=== PATIENT | female | born 2000 | race Caucasian/White ===

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

== ENCOUNTER 2023-01-15 12:46 | Emergency (ER) | payer BC, SELFPAY ==
[2023-01-15 12:47] VITALS: BP 130/91; PULSE 70; RESP 16; TEMP 36.7; O2SAT 97; BMI 23.1
[2023-01-15 13:17] LABS: Coronavirus 19, PCR Not Detected (NotDetected); Influenza A, PCR Not Detected (NotDetected); Influenza B, PCR Not Detected (NotDetected)
--- NOTE | 2023-01-15 13:19 | [facility].EDGENADL ---
Discharge Plan Disposition Patient Disposition: Home, Self-Care Prescriptions Prescriptions: New cefdinir 300 mg capsule 300 mg PO BID 10 Days Qty: 20 0RF No Action ranitidine HCl 150 MG tablet 150 mg PO DAILY montelukast 10 MG tablet 10 mg PO HS fluticasone propionate 16 GM spray,suspension 16 g intranasal DAILY norethindrone-e.estradiol-iron [Blisovi 24 Fe] 1 EACH tablet 1 ea PO DAILY levocetirizine 5 MG tablet 5 mg PO DAILY ondansetron 8 MG tablet,disintegrating 8 mg PO Q8H PRN (Reason: nausea/vomiting) 10 Days Qty: 30 0RF Referrals Follow up/Referrals: Provider,Referral, MD [Primary Care Provider] - See instructions Activity Restrictions/Add. Instructions Additional Instructions/Restrictions: You were evaluated in the emergency department today. At this time, we feel you likely have a viral upper respiratory infection. Given that you have a history of bacterial sinusitis that has been severe in the past, we are providing you with a prescription for cefdinir for you to take should your symptoms persist beyond 7 to 10 days. If you start this medication, please complete the full course as prescribed. Take Tylenol, ibuprofen, and use [id number] medications such as Flonase and Claritin to help reduce the nasal congestion and drainage. Return to the emergency department for new or worsening symptoms. Clinical Impressions Clinical Impression: Upper respiratory infection, viral, Sinusitis Instructions Patient Instructions: DI for Sinusitis, DI for Viral Upper Respiratory Infection -- Adult Discharge ED Provider: Marcia Oquendo General Adult HPI General Chief complaint: Upper Respiratory Infection Stated complaint: congestion, runny nose Time Seen by Provider: 01/15/23 12:55 Mode of Arrival: Ambulatory Source of Information: Patient Limitations: No Limitations Description of Symptoms (Recalled from ER Triage Doc. by RN): Pt reports cough, nasal congestion, sinus pressure, fever lastnight. Pt reports has taken 2 home covid tests-both negative. History of Present Illness HPI narrative: This patient is a 22-year-old female who denies significant past medical history presenting to the emergency department for evaluation with concern for 2 days of cough, nasal congestion, sinus pressure, and green nasal discharge. She also notes that she has had a fever since last night. She notes that she has a history of getting up bacterial sinus infections anytime she gets sick, so she is worried that she may need an antibiotic at this time. She denies any other concerns or complaints and has otherwise been well. She notes 2 negative COVID tests at home. Related Data Home Medications Medication Instructions Recorded Confirmed fluticasone propionate 50 16 g intranasal DAILY ALLERGIES 07/19/17 07/19/17 mcg/actuation nasal spray,suspension levocetirizine 5 mg tablet 5 mg PO DAILY ALLERGIES 07/19/17 07/19/17 montelukast 10 mg tablet 10 mg PO HS ALLERGIES 07/19/17 07/19/17 norethindrone 1 mg-ethinyl 1 ea PO DAILY control 07/19/17 07/19/17 estradiol 20 mcg (24)-iron 75 mg (4) tablet (Blisovi 24 Fe) ranitidine HCl 150 mg tablet 150 mg PO DAILY GERD 07/19/17 07/19/17 Previous Rx's Medication Instructions Recorded ondansetron 8 mg disintegrating 8 mg PO Q8H PRN nausea/vomiting 10 07/19/17 tablet days #30 tabs cefdinir 300 mg capsule 300 mg PO BID 10 days #20 caps 01/15/23 Allergies Allergy/AdvReac Type Severity Reaction Status Date / Time Penicillins Allergy Verified 07/27/17 17:27 Sulfa (Sulfonamide Allergy Verified 07/27/17 17:28 Antibiotics) [facility] Disclaimer: The information contained in this section may have been updated after the patient was seen, as this information can be updated by other users. Social History Smoking Status: Never smoker alcohol intake: never current occu
[2023-01-15 13:21] VITALS: BP 0/0; PULSE 140; RESP 36; TEMP 37.2; O2SAT 99
== END 2023-01-15 13:39 | disposition home or self-care (01) ==
PROVIDERS: Emergency Provider Emergency Medicine
DX: J06.9 Acute upper respiratory infection, unspecified (principal); J01.90 Acute sinusitis, unspecified; R50.9 Fever, unspecified; R05.9 Cough, unspecified
CPT/HCPCS: 87636; 99283